=== PATIENT | male | born 2000 | race African-American/Black ===

== ENCOUNTER 2019-03-20 17:18 | Emergency (ER) | payer SELFPAY ==
[~2019-03-20] VITALS: Ht 162.6 cm; Wt 50.0 kg
[~2019-03-20 17:18] MED LIST: CORTISPORIN OTIC OT; NO HOME MEDICATIONS; ZITHROMAX200 MG/5 M PO
[2019-03-20 17:19] VITALS: TEMP 97.8
[2019-03-20 17:42] LABS: BASO % 0.2 % (0.0-2.0); EOS # 0.1 (0.0-0.7); EOS % 0.5 % (0-4.0); GRAN # 8.3 (1.4-6.5); GRAN % 66.9 % (42.2-75.2); HEMATOCRIT 39.9 % (36.0-47.0); HEMOGLOBIN 12.5 g/dl (12.5-16.1); LYMPH # 3.4 (1.2-3.4); LYMPH % 27.2 % (20.0-51.0); MEAN CELL VOLUME 72 fl (80.0-95.0); MEAN CORPUSCULAR HEMOGLOBIN 23 pg (26.0-32.0); MEAN CORPUSCULAR HGB CONC 31 g/dl (33.0-37.0); MONO # 0.6 (0.1-0.6); MONO % 4.9 % (1.7-9.3); PLATELET COUNT 298 K/mm3 (130-400); RED BLOOD COUNT 5.53 M/mm3 (4.20-5.60); REDCELL DISTRIBUTION WIDTH-CV 14.9 % (11.5-14.5)
[2019-03-20 17:51] LABS: ALANINE AMINOTRANSFERASE 12 U/L (21-72); ALBUMIN 4.6 gm/dL (3.5-5.0); ALKALINE PHOSPHATASE 58 U/L (50-136); ANION GAP 13 mmol/L (7-16); AST,SGOT 36 U/L (15-37); BILIRUBIN,TOTAL 0.4 mg/dL (0.0-1.0); BLOOD UREA NITROGEN 18 mg/dL (9-20); CARBON DIOXIDE 22 mmol/L (22-30); CHLORIDE 105 mmol/L (98-107); CREATININE, serum 0.99 (0.66-1.25); GLUCOSE 139 mg/dL (74-106); POTASSIUM 3.2 mmol/L (3.4-5.0); SODIUM 140 mmol/L (137-145); TOTAL PROTEIN 7.3 gm/dL (6.4-8.2)
[2019-03-20 17:52] LABS: ALCOHOL(ethanol),MEDICAL < 10 mg/dL
[2019-03-20 19:25] LABS: COLLECTION METHOD CLEAN CATCH
[2019-03-20 19:45] LABS: MUCOUS Present /lpf; PH 7 (5-8); SQUAMOUS EPITHELIAL 0-2 /hpf; URINE APPEARANCE Clear; URINE BACTERIA None Seen /hpf; URINE BILIRUBIN Negative (NEGATIVE); URINE BLOOD 1+ (NEGATIVE); URINE COLOR Yellow; URINE GLUCOSE Negative (NEGATIVE); URINE KETONE Negative (NEGATIVE); URINE LEUKOCYTE ESTERASE Negative (NEGATIVE); URINE NITRATE Negative (NEGATIVE); URINE PROTEIN(semi-quant) Negative (NEGATIVE); URINE RBC 0-2 /hpf; URINE UROBILINOGEN Negative (NEGATIVE)
[2019-03-20 19:51] LABS: TRICYCLIC ANTIDEPRESS URINE NEGATIVE
[2019-03-20 20:56] VITALS: BP 133/78; PULSE 69
== END 2019-03-20 20:39 | disposition short-term general hospital (02) ==
LOC: COL.ER 17:18
PROVIDERS: Family Medicine
DX: S02.609A Fracture of mandible, unspecified, initial encounter for closed fracture (principal); S71.101A Unspecified open wound, right thigh, initial encounter; Z23 Encounter for immunization; X95.9XXA Assault by unspecified firearm discharge, initial encounter
CPT/HCPCS: J0690; J3010; J7030; J7120